=== PATIENT | female | born 1960 | race Caucasian/White ===

== ENCOUNTER 2018-10-16 11:23 | Outpatient (CLI) | payer OTHER | END 2018-10-16 13:06 | disposition home or self-care (01) | LOC: SONOGRAMA 11:23 | DX: M75.51 Bursitis of right shoulder (principal); M62.838 Other muscle spasm; M25.619 Stiffness of unspecified shoulder, not elsewhere classified ==

== ENCOUNTER 2024-08-28 10:56 | Outpatient (CLI) | payer OTHER | END 2024-08-28 10:59 | disposition home or self-care (01) | LOC: SONOGRAMA 10:56 | PROVIDERS: ATTEND Pathology Anatomic Pathology & Clinical Pathology | DX: E04.1 Nontoxic single thyroid nodule (principal); D34 Benign neoplasm of thyroid gland; E07.89 Other specified disorders of thyroid ==